=== PATIENT | female | born 1950 | race Hispanic/Latino ===

== ENCOUNTER 2017-12-28 22:22 | Emergency (ER) | payer MEDICARE, OTHER ==
[~2017-12-28] VITALS: Ht 152.4 cm; Wt 83.5 kg
[~2017-12-28 22:22] MED LIST: AMITRIPTYLINE H25 MG PO; ASPIRIN PO; CALCIUM PO; ENALAPRIL PO; GLIMEPIRIDE2 MG PO; NEXIUM40 MG PO; SIMVASTATIN PO; TRAMADOL-ACETAMI1 EA PO; VERAPAMIL PO
[2017-12-28] MEDS ORDERED: ACETAMINOPHEN 325 MG TAB PO ONE (22:45)
[2017-12-28 22:58] LABS: BASOPHILS % 0.3 % (0.0-1.0); EOSINOPHILS # (AUTO) 0.1 (0.0-0.4); EOSINOPHILS % 0.9 % (0.0-6.0); HEMATOCRIT 34.7 % (34.2-44.1); HEMOGLOBIN 11.3 g/dL (12.0-16.0); LYMPHOCYTES % 15.8 % (18.0-39.1); MEAN CORPUSCULAR HEMOGLOBIN 31.5 pg (28-32); MEAN CORPUSCULAR HGB CONC 32.6 g/dL (31-35); MEAN CORPUSCULAR VOLUME 96.7 fL (81-99); MONOCYTES # (AUTO) 1.3 (0.2-0.8); MONOCYTES % 10.5 % (4.4-11.3); NEUTROPHILS # (AUTO) 9.1 (2.1-6.9); NEUTROPHILS % 71.9 % (38.7-80.0); PLATELET COUNT 215 x10e3/uL (140-360); RED BLOOD COUNT 3.59 x10e6/uL (3.6-5.1)
[2017-12-28 23:13] LABS: ALBUMIN 3.3 g/dL (3.5-5.0); ALBUMIN/GLOBULIN RATIO 1.1 (0.8-2.0); ANION GAP 13.1 mmol/L (8-16); CREATININE, SERUM 0.95 mg/dL (0.57-1.11); POTASSIUM 4.1 mmol/L (3.5-5.1)
--- NOTE | 2017-12-28 23:55 | Diagnostic Imaging Report ---
CHEST 2 VIEWS, Technique: CHEST 2 VIEWS Comparison: None Clinical history: Fever DISCUSSION: See impression IMPRESSION: 1. Elevated right hemidiaphragm with overlying opacity, likely atelectasis or scarring. 2. Prominent cardiac silhouette, accentuated by AP technique. Atherosclerotic aortic calcifications. 3. No significant effusion. No pneumothorax. 4. Partially imaged right shoulder arthroplasty. Signed by: Dr Devi Reyes MD on 12/28/2017 11:52 PM
[2017-12-29] MEDS ORDERED: CEFTRIAXONE SOD 1 GM VIAL IV ONE (00:30)
[2017-12-29 00:44] LABS: CLARITY,URINE CLEAR (CLEAR); COLOR,URINE YELLOW (YELLOW)
[2017-12-29 00:45] LABS: BILIRUBIN,URINE NEGATIVE (NEGATIVE); KETONES,URINE TRACE (NEGATIVE); LEUKOCYTE ESTERASE ,URINE NEGATIVE (NEGATIVE); NITRITE,URINE NEGATIVE (NEGATIVE); PROTEIN,URINE DIPSTICK 1+ (NEGATIVE); URINE UROBILINOGEN 1 mg/dL (0.2 - 1)
[2017-12-29 00:46] LABS: EPITHELIAL CELLS,URINE FEW /LPF; RBC,URINE 0-5 /HPF (0-5); WBC,URINE (MAN) 0-5 /HPF (0-5)
[2017-12-29 00:54] VITALS: BP 98/44
[2017-12-29] MEDS ORDERED: ACETAMINOPHEN325 M1 PO (00:58)
[2017-12-29] MEDS ORDERED: CEFDINIR300 MG PO (00:58)
== END 2017-12-29 01:15 | disposition home or self-care (01) ==
LOC: ER 22:22
DX: R50.9 Fever, unspecified (principal); R05 Cough; J98.11 Atelectasis; I10 Essential (primary) hypertension; E11.9 Type 2 diabetes mellitus without complications
CPT/HCPCS: 36415; 71046; 80053; 81001; 85025; 99284

== ENCOUNTER → 2019-05-28 | Day surgery (SDC) | payer MEDICARE, OTHER ==
[2019-05-26 09:55] LABS: BASOPHILS % 0.5 % (0.0-1.0); EOSINOPHILS # (AUTO) 0.2 (0.0-0.4); EOSINOPHILS % 2.9 % (0.0-6.0); HEMATOCRIT 40.2 % (34.2-44.1); HEMOGLOBIN 13.4 g/dL (12.0-16.0); LYMPHOCYTES # (AUTO) 2.5 (1.0-3.2); LYMPHOCYTES % 34.7 % (18.0-39.1); MEAN CORPUSCULAR HEMOGLOBIN 30.9 pg (28-32); MEAN CORPUSCULAR HGB CONC 33.3 g/dL (31-35); MEAN CORPUSCULAR VOLUME 92.6 fL (81-99); MONOCYTES # (AUTO) 0.5 (0.2-0.8); NEUTROPHILS % 54.5 % (38.7-80.0); PLATELET COUNT 275 x10e3/uL (140-360); RED BLOOD COUNT 4.34 x10e6/uL (3.6-5.1); RED CELL DISTRIBUTION WIDTH 12.8 % (11.7-14.4)
[2019-05-26 10:15] LABS: ANION GAP 13.4 mmol/L (8-16); BLOOD UREA NITROGEN 13 mg/dL (7-26); BUN/CREATININE RATIO 17 (6-25); CALCIUM 9.3 mg/dL (8.4-10.2); CARBON DIOXIDE 24 mmol/L (22-29); CHLORIDE 109 mmol/L (98-107); CREATININE, SERUM 0.78 mg/dL (0.57-1.11); EST GLOMERULAR FILTRATION RATE > 60 ML/MIN (60-); GLUCOSE 99 mg/dL (74-118); POTASSIUM 4.4 mmol/L (3.5-5.1); SODIUM 142 mmol/L (136-145)
--- NOTE | 2019-05-26 11:46 | Diagnostic Imaging Report ---
EXAMINATION: CHEST 2 VIEWS INDICATION: Pre-operative COMPARISON: Chest radiograph 12/28/2017 FINDINGS: LINES/TUBES:None LUNGS:The lungs are moderately inflated. No focal consolidation or pulmonary edema. PLEURA:No pleural effusion or pneumothorax. MEDIASTINUM:The cardiomediastinal silhouette appears unchanged in size and shape. Atherosclerotic calcifications of the thoracic aorta. BONES/SOFT TISSUES:No acute osseous injury. Right shoulder arthroplasty hardware. Partially visualized left humerus fixation hardware. Degenerative changes of the visualized spine. ABDOMEN:No free air under the diaphragm. IMPRESSION: No focal pneumonia or pulmonary edema. Signed by: Ravin Goodman MD on 05/26/2019 11:44 AM
[~2019-05-28] MED LIST changes: +ACETAMINOPHEN325 M1 PO; +ASPIR 8181 MG PO; +CEFAZOLIN SOD 1 GM/NS 50ML 100 ML IV ONE; +CEFDINIR300 MG PO; +CETIRIZINE HCL10 MG PO; +DEXAMETHASONE SOD PHOS INJ 4 MG/ML VIAL ONE; +FENTANYL CITRATE/PF 100MCG/2 ML INJ ONE; +FLOVENT HFA12 G1 INH; +GABAPENTIN100 MG PO; +LIDOCAINE HCL 2% LOCAL INJ 5 ML SDV VIAL INJ ONE; +LISINOPRIL5 MG PO; +ONDANSETRON HCL INJ 2MG/ML 2ML 2 MG/ML VIAL ONE; +PRO AIR INH; +PROPOFOL IV EMULSION 10 MG/ML 20 ML VIAL ONE; +SEVOFLURANE INHAL SOLN 250 ML PEN BTL ONE; +VESICARE5 MG PO
--- OUTSIDE RECORDS SUMMARY | 2019-05-28 05:23 | XMS REPORT ---
Author Author [facility] Address Unknown Phone Unavailable Care Team Providers Care Buttermaker Continuous Churn Name Role Phone MAX RAGLAND Unavailable Unavailable Emigdio SAMANIEGO Unavailable Unavailable Payers Payer Name Policy Type Policy Number Effective Date Expiration Date Problems This patient has no known problems. Allergies, Adverse Reactions, Alerts Allergy Name Allergy Type Status Severity Reaction(s) Onset Date Inactive Date Treating Clinician Comments No Known Allergies DA Active U 2017-05-02 00:00:00 Medications This patient has no known medications. Results Test Description Test Time Test Comments Text Results Atomic Results Result Comments CHEST 2 VIEWS 2019-05-26 11:42:00 [place] [id number] Patient Name: SAMUEL LIMON MR #: [id number] : 1950 Age/Sex: 68/F Req #: [id number] Adm Physician: Ordered by: MAX RAGLAND MD Report #: [id number] Location: OR Room/Bed: Procedure: [id number] DX/CHEST 2 VIEWS Exam Date: 05/26/19 Exam Time: 1000 REPORT STATUS: Signed EXAMINATION: CHEST 2 VIEWS INDICATION: Pre-operative COMPARISON: Chest radiograph 12/28/2017 FINDINGS: LINES/TUBES:None LUNGS:The lungs are moderately inflated. No focal consolidation or pulmonary edema. PLEURA:No pleural effusion or pneumothorax. MEDIASTINUM:The cardiomediastinal silhouette appears unchanged in size and shape. Atherosclerotic calcifications of the thoracic aorta. BONES/SOFT TISSUES:No acute osseous injury. Right shoulder arthroplasty hardware. Partially visualized left humerus fixation hardware. Degenerative changes of the visualized spine. ABDOMEN:No free air under the diaphragm. IMPRESSION: No focal pneumonia or pulmonary edema. Signed by: Keyona Almonte MD on 05/26/2019 11:44 AM Dictated By: KEYONA ALMONTE MD [id number] Transcribed By: BEATRIZ on 05/26/19 1144 COPY TO: MAX RAGLAND MD - MRI LW JNT W/O CONT RT 2019-04-01 13:14:00 FAX: Lakeshia Nichols [phone] [place]: St: REG FAX: Marcelino Benitez MD [phone] Name: SAMUEL LIMON [facility] : 1950 Age/S: 68/F [address] [facility] Unit #: [id number] Loc: [place] [address] Phys: Lakeshia Nichols [employer]POOL CLEANER HAND Acct: [id number] Dis Date: Status: REG CLI PHONE #: [phone] Exam Date: 04/01/2019 1031 FAX #: [phone] Reason: M25.561 EXAMS: CPT CODE: [id number] MRI LW JNT W/[place] [address] EXAMINATION: MRI KNEE WITHOUT CONTRAST - RIGHT CLINICAL INDICATION: Knee pain COMPARISON: None. TECHNIQUE: 1.5T MRI. Axial T1, PD fat-sat; sagittal PD, T2 fat-sat; coronal PD fat-sat. FINDINGS: Menisci: Medial: Degenerative changes are present in the posterior horn. Additionally there is a tear along the undersurface of the meniscal body. There is meniscal extrusion a distance of 5 mm. Lateral: Intact. Ligaments: ACL: Findings suggest partial tearing PCL: Intact MCL: Intact. LCL complex: Intact. Patellofemoral Extensor Mechanism: Quadriceps and patellar ten dons, and lateral retinacular complexes are intact. There is thickening and increased T2 signal of the medial retinacular complex suggesting strain. No definite tear is seen. Articular Cartilage: Patellofemoral: Full-thickness cartilage defect overlying the median patellar ridge and medial patellar facet is present. There is also fissuring of the cartilage overlying the lateral patellar facet. Medial compartment: Full-thickness cartilage loss overlying the medial femoral condyle weightbearing zone is present. Lateral compartment: Greater than 50% thickness cartilage loss is seen overlying the lateral femoral condyle. Muscles/Tendons: Stabilizing muscles and tendons surrounding the knee are intact. Bone/Marrow: There is extensive edema of the bone marrow in the medial femoral condyle and medial tibial plateau. There is also edema of the marrow in the metadiaphysis of the femur. Large osteophytes are present on the femur, tibia, and patella. PAGE 1 Signed Report (CONTINUED) FAX: Lakeshia Nichols [phone] [place]: B St: REG FAX: Marcelino Benitez MD [phone] Name: SAMUEL LIMON [facility] : 1950 Age/S: 68/F [address] [facility] Unit #: [id number] Loc: [place] [address] Phys: Lakeshia Nichols [employer] CLE[employer] HAND Acct: [id number] Dis Date: Status: REG CLI PHONE #: [phone] Exam Date: 04/01/2019 1031 FAX #: [phone] Reason: M25.561 EXAMS: CPT CODE: [id number] MRI LW JNT W/[place] [address] <Continued> Other: No joint effusion or intra-articular loose body. Small suprapatellar effusion is present. IMPRESSION: Severe degenerative changes of the right knee with full-thickness cartilage loss overlying the medial femoral condyle and the medial patellar facet and immediate and patellar ridge. Tear involving the body of the medial meniscus. Findings suggest partial tearing of the anterior cruciate ligament. Small effusion of the knee joint. at 1314 Reported and signed by: Urban Lindsay MD CC: Lakeshia Nichols [employer]PO[employer] CLE[employer] HAND; Marcelino Mayes MD Technologist: Denisha Kirk(R)() Trnscrd Date/Time/By: 04/01/2019 (3718) : By: [email or web address] Orig Print D/T: S: 04/01/2019 (8201) PAGE 2 Signed Report - XR ANKLE 3 + V RT 2018-06-12 17:13:00 FAX: Marcelino Benitez MD [phone] [place]: O St: REG Name: SAMUEL LIMON [facility] : 1950 Age/S: 67/F [address] Unit #: [id number] Loc: [place] [address] Phys: Marcelino Mayes MD Acct: [id number] Dis Date: Status: REG CLI PHONE #: [phone] Exam Date: 06/12/2018 1533 FAX #: [phone] Reason: M79.671 EXAMS: CPT CODE: [id number] XR ANKLE 3 + [place] [id number] REASON FOR EXAM: M79.671 EXAM ORDER DATE: 06/12/2018 3:11 PM Ordering Mono: Marcelino Mayes MD PROCEDURE: - XR ANKLE 3 + V RT FINDINGS: 3 views of the right ankle were obtained. The osseous structures are unremarkable in size and shape. The joint spaces are maintained. No evidence of fracture. The syndesmosis is intact. IMPRESSION: Unremarkable right ankle at 2999 Reported and signed by: Anatoliy Carter M.D. CC: Marcelino Mayes MD Technologist: RT Pinky(Art) Trnscrd Date/Time/By: 06/12/2018 (4359) : By: [email or web address] Orig Print D/T: S: 06/12/2018 (1900) PAGE 1 Signed Report CHEST 2 VIEWS 2017-12-28 23:50:00 [place] [address] Patient Name: SAMUEL LIMON MR #: [id number] : 1950 Age/Sex: 67/F Req #: [id number] [facility] Physician: Ordered by: HOLLY SAMANIEGO MD Report #: [id number] Location: ER Room/Bed: Procedure: [id number] DX/CHEST 2 VIEWS Exam Date: 12/28/17 Exam Time: 2300 REPORT STATUS: Signed CHEST 2 VIEWS, Technique: CHEST 2 VIEWS Comparison: None Clinical history: Fever DISCUSSION: See impression IMPRESSION: 1. Elevated right hemidiaphragm with overlying opacity, likely atelectasis or scarring. 2. Prominent cardiac silhouette, accentuated by AP technique. Atherosclerotic aortic calcifications. 3. No significant effusion. No pneumothorax. 4. Partially imaged right shoulder arthroplasty. Signed by: Dr Arturo Reyes MD on 12/28/2017 11:52 PM Dictated By: ARTURO REYES MD 51 Transcribed By: BEATRIZ on 12/28/172351 COPY TO: HOLLY SAMANIEGO MD
[2019-05-28 09:30] VITALS: BP 131/58
--- NOTE | 2019-05-30 22:21 | Operative Report ---
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 OPERATIONS AND PROCEDURES PERFORMED: The patient underwent a right knee examination under anesthesia, right knee arthroscopy, right knee partial medial meniscectomy, right knee chondroplasty of the patella, the trochlea, the medial femoral condyle, the medial tubercular groove, the lateral femoral condyle and lateral tibial plateau. PAINTER AND GRADER CORK: RYLIE Wayne ANESTHESIA: General endotracheal intubation anesthesia. IV FLUIDS: Per anesthesia record. BRIEF DESCRIPTION OF THE PATIENT'S OPERATIVE PROCEDURE: Ms. Lay was taken to the operating room, placed in supine position on the operating table. Following induction of general anesthesia as well as endotracheal intubation, the patient's right lower extremity was examined under anesthesia. She was found to have a mild effusion of the knee joint, but otherwise ligamentously stable knee. The patient's lower extremity was prepped and draped in standard surgical fashion. A two-port technique used to provide this patient arthroscopic evaluation of the knee joint. Examination of suprapatellar pouch and medial and lateral gutters found no evidence of loose bodies. There was, however, evidence of chondromalacia of the patellar and trochlear surfaces. The scope was advanced to the medial compartment. Examination of the medial compartment demonstrated a torn medial meniscus. There was also chondromalacia of the articulating surfaces. A combination of biting forceps and motorized shaver used to resect the torn portion of meniscus. Chondroplasties of the medial femoral condyle and medial tibial plateau performed at this time. The scope was advanced to the intercondylar notch and anterior cruciate ligament was identified and found to be intact. The scope was advanced to the lateral compartment and chondromalacia of the articulating surfaces were encountered. A chondroplasty of the lateral femoral condyle and lateral tibial plateau performed was done. The scope was advanced to the suprapatellar pouch and chondroplasties of the patellar and trochlear were performed. The knee was deflated with sterile normal saline. The portal sites were closed using 4-0 nylon suture. The portal sites as well as knee itself were injected with 0.5% Marcaine with epinephrine. Sterile dressings were applied. The patient was awakened to the postanesthesia care in stable condition. MD JOHNNY Giron/SHONDA /[id number]
== END | disposition home or self-care (01) ==
LOC: OR 05:17
PROVIDERS: ATTEND Specialist
DX: S83.221A Peripheral tear of medial meniscus, current injury, right knee, initial encounter (principal); M17.11 Unilateral primary osteoarthritis, right knee; M22.41 Chondromalacia patellae, right knee; E11.9 Type 2 diabetes mellitus without complications; I10 Essential (primary) hypertension; E78.00 Pure hypercholesterolemia, unspecified; G43.909 Migraine, unspecified, not intractable, without status migrainosus; F32.9 Major depressive disorder, single episode, unspecified; X58.XXXA Exposure to other specified factors, initial encounter; Z88.8 Allergy status to other drugs, medicaments and biological substances; Z01.810 Encounter for preprocedural cardiovascular examination; Z01.812 Encounter for preprocedural laboratory examination; Z01.818 Encounter for other preprocedural examination; Z79.84 Long term (current) use of oral hypoglycemic drugs; Z79.82 Long term (current) use of aspirin; Z68.34 Body mass index [BMI] 34.0-34.9, adult
CPT/HCPCS: 29881; 36415 ×2; 71046; 80048; 82948; 85025; 93005; J0690; J1100; J2001; J2405; J2704; J3010

== ENCOUNTER → 2020-02-27 | Outpatient (CLI) | payer MEDICARE, OTHER ==
[~2020-02-27] MED LIST changes: -CEFAZOLIN SOD 1 GM/NS 50ML 100 ML IV ONE; -DEXAMETHASONE SOD PHOS INJ 4 MG/ML VIAL ONE; -FENTANYL CITRATE/PF 100MCG/2 ML INJ ONE; -LIDOCAINE HCL 2% LOCAL INJ 5 ML SDV VIAL INJ ONE; -ONDANSETRON HCL INJ 2MG/ML 2ML 2 MG/ML VIAL ONE; -PROPOFOL IV EMULSION 10 MG/ML 20 ML VIAL ONE; -SEVOFLURANE INHAL SOLN 250 ML PEN BTL ONE
--- NOTE | 2020-02-27 14:16 | Diagnostic Imaging Report ---
EXAMINATION: HUMERUS LEFT 2+VIEWS, SHOULDER LEFT COMPLETE INDICATION: Shoulder, arm pain COMPARISON: None FINDINGS: Status post prior ORIF of the distal left humerus with plate and screw construct. Hardware appears intact. Alignment is anatomic. No acute fracture or dislocation. Mild degenerative changes of the glenohumeral and acromioclavicular joints. The soft tissues appear unremarkable. IMPRESSION: No acute osseous injury. Status post prior left distal humerus ORIF. Signed by: Ravin Goodman MD on 02/27/2020 2:12 PM
== END ==
LOC: RAD 13:14
PROVIDERS: ATTEND Internal Medicine
DX: M25.512 Pain in left shoulder (principal)

== ENCOUNTER 2020-03-16 14:25 | Outpatient (RCR) | payer MEDICARE, OTHER | END 2020-03-22 | LOC: PT 14:25 | PROVIDERS: ATTEND Specialist | DX: S13.4XXD Sprain of ligaments of cervical spine, subsequent encounter (principal); S16.1XXD Strain of muscle, fascia and tendon at neck level, subsequent encounter; M25.512 Pain in left shoulder; M25.612 Stiffness of left shoulder, not elsewhere classified; M62.81 Muscle weakness (generalized); M53.82 Other specified dorsopathies, cervical region ==

== ENCOUNTER 2020-04-14 10:51 | Outpatient (RCR) | payer MEDICARE, OTHER | END 2020-04-22 | LOC: PT 10:51 | PROVIDERS: ATTEND Specialist | DX: S13.4XXA Sprain of ligaments of cervical spine, initial encounter (principal); S16.1XXD Strain of muscle, fascia and tendon at neck level, subsequent encounter; M25.512 Pain in left shoulder; M25.612 Stiffness of left shoulder, not elsewhere classified; M62.81 Muscle weakness (generalized) ==

== ENCOUNTER 2020-05-07 12:55 | Outpatient (RCR) | payer MEDICARE, OTHER | END 2020-05-23 | LOC: PT 12:55 | PROVIDERS: ATTEND Specialist | DX: S13.4XXD Sprain of ligaments of cervical spine, subsequent encounter (principal); S16.1XXD Strain of muscle, fascia and tendon at neck level, subsequent encounter; M53.82 Other specified dorsopathies, cervical region; M25.512 Pain in left shoulder; M25.612 Stiffness of left shoulder, not elsewhere classified; M62.81 Muscle weakness (generalized) | CPT/HCPCS: 97139 ==

== ENCOUNTER → 2020-11-22 | Outpatient (CLI) | payer MEDICARE, OTHER | LOC: CARD 10:42 | PROVIDERS: ATTEND Internal Medicine | DX: M79.604 Pain in right leg (principal) | CPT/HCPCS: 93925; 93970 ==

== ENCOUNTER 2021-07-14 14:56 | Emergency (ER) | payer MEDICARE, OTHER ==
[~2021-07-14] VITALS: Ht 152.4 cm; Wt 79.4 kg
[2021-07-14] MEDS ORDERED: ONDANSETRON HCL INJ 2MG/ML 2ML 2 MG/ML VIAL IV PRN (15:45)
[2021-07-14] MEDS ORDERED: Morphine 2mg Syringe 2 MG/ML SYR IV PRN (15:45)
[2021-07-14 16:10] LABS: BASOPHILS # (AUTO) 0.1 (0.0-0.1); BASOPHILS % 0.5 % (0.0-1.0); EOSINOPHILS # (AUTO) 0.3 (0.0-0.4); EOSINOPHILS % 2.7 % (0.0-6.0); HEMOGLOBIN 13.3 g/dL (12.0-16.0); LYMPHOCYTES # (AUTO) 3.1 (1.0-3.2); LYMPHOCYTES % 30.9 % (18.0-39.1); MEAN CORPUSCULAR HEMOGLOBIN 31.7 pg (28-32); MEAN CORPUSCULAR HGB CONC 33.3 g/dL (31-35); MEAN CORPUSCULAR VOLUME 95.2 fL (81-99); MONOCYTES # (AUTO) 0.8 (0.2-0.8); MONOCYTES % 8.1 % (4.4-11.3); NEUTROPHILS # (AUTO) 5.6 (2.1-6.9); NEUTROPHILS % 57.1 % (38.7-80.0); PLATELET COUNT 286 x10e3/uL (140-360); RED CELL DISTRIBUTION WIDTH 13.2 % (11.7-14.4)
[2021-07-14 16:13] LABS: CLARITY,URINE CLOUDY (CLEAR); COLOR,URINE YELLOW (YELLOW); KETONES,URINE NEGATIVE (NEGATIVE); LEUKOCYTE ESTERASE ,URINE LARGE (NEGATIVE); NITRITE,URINE POSITIVE (NEGATIVE); PROTEIN,URINE DIPSTICK NEGATIVE (NEGATIVE); URINE UROBILINOGEN 1 mg/dL (0.2 - 1)
[2021-07-14 16:27] LABS: ALBUMIN 3.9 g/dL (3.5-5.0); ALBUMIN/GLOBULIN RATIO 1.3 (0.8-2.0); ANION GAP 10.7 mmol/L (8-16); CALCIUM 8.9 mg/dL (8.4-10.2); CREATININE, SERUM 0.89 mg/dL (0.57-1.11); POTASSIUM 3.7 mmol/L (3.5-5.1)
[2021-07-14 16:30] LABS: BACTERIA,URINE MANY /HPF
[2021-07-14] MEDS ORDERED: SODIUM CHLORIDE 0.9% 50ML 50 ML ONE (16:45)
[2021-07-14] MEDS ORDERED: IOPAMIDOL 370 MG/ML 200 ML INFUS..BTL INJ ONE (16:45)
[2021-07-14] MEDS ORDERED: CEFTRIAXONE 1 GM in SODIUM CHLORIDE 0.9% 50ML 50 ML IV SCH (17:00)
[2021-07-14] MEDS ORDERED: ONDANSETRON ODT4 MG PO (17:45)
[2021-07-14] MEDS ORDERED: METRONIDAZOLE 500 MG TAB PO ONE (17:45)
[2021-07-14] MEDS ORDERED: METRONIDAZOLE500 MG PO (17:45)
[2021-07-14] MEDS ORDERED: CEFDINIR300 MG PO (17:45)
[2021-07-14 18:02] VITALS: BP 130/76
== END 2021-07-14 18:04 | disposition home or self-care (01) ==
LOC: ER 15:00
DX: R10.32 Left lower quadrant pain (principal); K57.90 Diverticulosis of intestine, part unspecified, without perforation or abscess without bleeding; K59.00 Constipation, unspecified; N39.0 Urinary tract infection, site not specified; I10 Essential (primary) hypertension; E11.9 Type 2 diabetes mellitus without complications; E78.5 Hyperlipidemia, unspecified; Z96.611 Presence of right artificial shoulder joint; F32.A Depression, unspecified
CPT/HCPCS: 36415; 74018; 74177; 80053; 81001; 85025; 87086; 87186; 99284; J0696; J2270; J2405; Q9967

== ENCOUNTER → 2021-09-08 | Outpatient (CLI) | payer MEDICARE, OTHER ==
[~2021-09-08] MED LIST changes: +METRONIDAZOLE500 MG PO; +ONDANSETRON ODT4 MG PO
== END ==
LOC: RAD 13:38
PROVIDERS: ATTEND Internal Medicine
DX: Z01.818 Encounter for other preprocedural examination (principal)
CPT/HCPCS: 71046

== ENCOUNTER → 2021-09-27 | Day surgery (SDC) | payer MEDICARE, OTHER ==
[~2021-09-27] MED LIST changes: +BALANCED SALT SOLN (OPTH) 15 ML BTL IO ONE; +DEXTROSE 5% 250ML 250 ML IV ONE; +HYDROCHLOROTHIA25 MG PO; +LIDOCAINE 2% /EPINEPHRINE 20 ML SDV INJ ONE; +LOSARTAN POTASS25 MG PO; +MELOXICAM7.5 MG PO; +MIDAZOLAM HCL 5 MG/ML VIAL ONE; +Morphine 10mg syringe 10 MG/ML INJ ONE; +NEOMYCIN/POLYMYXIN/DEX (OPTH) 3.5 GM TUBE ONE; +POVIDONE IODINE 5% (OPTH) 30 ML BTL ONE
[2021-09-27 17:58] VITALS: BP 135/74
== END | disposition home or self-care (01) ==
LOC: OR 12:06
PROVIDERS: ATTEND Ophthalmology
DX: H02.834 Dermatochalasis of left upper eyelid (principal); H02.831 Dermatochalasis of right upper eyelid; I10 Essential (primary) hypertension; E11.9 Type 2 diabetes mellitus without complications; E78.5 Hyperlipidemia, unspecified; R53.1 Weakness; F32.A Depression, unspecified; Z01.812 Encounter for preprocedural laboratory examination; Z20.822 Contact with and (suspected) exposure to COVID-19; Z79.82 Long term (current) use of aspirin; Z79.84 Long term (current) use of oral hypoglycemic drugs; Z79.899 Other long term (current) drug therapy
CPT/HCPCS: 15823; 36415; 82948; J2001; J7070; U0002; J2250; J2270

== ENCOUNTER → 2022-07-14 | Outpatient (CLI) | payer MEDICARE, OTHER ==
[~2022-07-14] MED LIST changes: -BALANCED SALT SOLN (OPTH) 15 ML BTL IO ONE; -DEXTROSE 5% 250ML 250 ML IV ONE; -LIDOCAINE 2% /EPINEPHRINE 20 ML SDV INJ ONE; -MIDAZOLAM HCL 5 MG/ML VIAL ONE; -Morphine 10mg syringe 10 MG/ML INJ ONE; -NEOMYCIN/POLYMYXIN/DEX (OPTH) 3.5 GM TUBE ONE; -POVIDONE IODINE 5% (OPTH) 30 ML BTL ONE
== END ==
LOC: RAD 12:12
PROVIDERS: ATTEND Internal Medicine
DX: M25.561 Pain in right knee (principal); M25.562 Pain in left knee

== ENCOUNTER 2023-02-12 12:46 | Outpatient (RCR) | payer MEDICARE, OTHER | END 2023-02-20 | LOC: PT 12:46 | PROVIDERS: ATTEND Physician Assistant | DX: Z47.1 Aftercare following joint replacement surgery (principal); Z96.652 Presence of left artificial knee joint ==

== ENCOUNTER → 2023-03-12 | Day surgery (SDC) | payer MEDICARE, OTHER ==
[2023-03-09 12:51] LABS: BASOPHILS # (AUTO) 0.1 (0.0-0.1); BASOPHILS % 0.7 % (0.0-1.0); EOSINOPHILS # (AUTO) 0.3 (0.0-0.4); HEMATOCRIT 38.9 % (34.2-44.1); HEMOGLOBIN 13.2 g/dL (12.0-16.0); LYMPHOCYTES # (AUTO) 2.8 (1.0-3.2); LYMPHOCYTES % 33.3 % (18.0-39.1); MEAN CORPUSCULAR HEMOGLOBIN 31.3 pg (28-32); MEAN CORPUSCULAR HGB CONC 33.9 g/dL (31-35); MEAN CORPUSCULAR VOLUME 92.2 fL (81-99); MONOCYTES # (AUTO) 0.7 (0.2-0.8); MONOCYTES % 8.2 % (4.4-11.3); NEUTROPHILS # (AUTO) 4.5 (2.1-6.9); NEUTROPHILS % 54.6 % (38.7-80.0); PLATELET COUNT 289 x10e3/uL (140-360); RED BLOOD COUNT 4.22 x10e6/uL (3.6-5.1); RED CELL DISTRIBUTION WIDTH 12.6 % (11.7-14.4); WHITE BLOOD COUNT 8.31 x10e3/uL (4.8-10.8)
[~2023-03-12] MED LIST changes: +LACTATED RINGER'S 1,000 ML ONE; +LIDOCAINE HCL 2% LOCAL INJ 5 ML SDV VIAL INJ ONE; +PROPOFOL IV EMULSION 10 MG/ML 20 ML VIAL ONE
[2023-03-12 09:15] VITALS: TEMP 99.3
[2023-03-12 09:40] VITALS: BP 127/71; PULSE 63; RESP 17; O2SAT 100
== END | disposition home or self-care (01) ==
LOC: OR 06:43
PROVIDERS: ATTEND Specialist
DX: M24.662 Ankylosis, left knee (principal); Z96.652 Presence of left artificial knee joint; I10 Essential (primary) hypertension; E78.5 Hyperlipidemia, unspecified; E11.40 Type 2 diabetes mellitus with diabetic neuropathy, unspecified; Z79.899 Other long term (current) drug therapy; Z79.82 Long term (current) use of aspirin
CPT/HCPCS: 27599; 36415 ×2; 82948; 85025; J2001; J2704; J7121

== ENCOUNTER → 2024-08-26 | Outpatient (REF) | payer MEDICARE ==
[~2024-08-26] MED LIST changes: -LACTATED RINGER'S 1,000 ML ONE; -LIDOCAINE HCL 2% LOCAL INJ 5 ML SDV VIAL INJ ONE; -PROPOFOL IV EMULSION 10 MG/ML 20 ML VIAL ONE; +VERAPAMIL ER240 MG PO
== END ==
LOC: RAD 13:24
PROVIDERS: ATTEND Internal Medicine
DX: Z01.818 Encounter for other preprocedural examination (principal)
CPT/HCPCS: 71046

== ENCOUNTER → 2024-12-15 | Outpatient (REF) | payer MEDICARE ==
[~2024-12-15] MED LIST changes: +ASPIRIN81 MG PO; +SIMVASTATIN20 MG PO; +vit d PO
== END ==
LOC: RAD 14:42
PROVIDERS: ATTEND Internal Medicine
DX: M54.6 Pain in thoracic spine (principal); M81.0 Age-related osteoporosis without current pathological fracture
CPT/HCPCS: 71046

== ENCOUNTER 2024-12-18 15:56 | Outpatient (RCR) | payer MEDICARE | END 2024-12-21 | LOC: PT 15:56 | PROVIDERS: ATTEND Physician Assistant | DX: Z47.1 Aftercare following joint replacement surgery (principal); Z96.651 Presence of right artificial knee joint; M25.561 Pain in right knee; M25.661 Stiffness of right knee, not elsewhere classified; R26.2 Difficulty in walking, not elsewhere classified; M62.81 Muscle weakness (generalized) ==

== ENCOUNTER 2025-01-15 16:58 | Outpatient (RCR) | payer MEDICARE | END 2025-01-20 | LOC: PT 16:58 | PROVIDERS: ATTEND Physician Assistant | DX: Z47.1 Aftercare following joint replacement surgery (principal); Z96.651 Presence of right artificial knee joint; M25.561 Pain in right knee; M25.661 Stiffness of right knee, not elsewhere classified; R26.2 Difficulty in walking, not elsewhere classified; M62.81 Muscle weakness (generalized) ==